=== PATIENT | female | born 1965 | race Caucasian/White ===

== ENCOUNTER 2017-06-22 18:12 | Inpatient (IN) | payer OTHER ==
[~2017-06-22] VITALS: Ht 157.5 cm; Wt 58.3 kg
[2017-06-22 18:23] VITALS: BP 137/71; PULSE 110; RESP 16; TEMP 97.6; O2SAT 97
[2017-06-22] MEDS ORDERED: KLON2TAB PO (18:46)
[2017-06-22] MEDS ORDERED: ADDE20 PO (18:46)
[2017-06-22] MEDS ORDERED: VENL75TA PO (18:46)
[2017-06-22 19:20] VITALS: BP 127/75; PULSE 91; RESP 14; O2SAT 98
[2017-06-22] MEDS ORDERED: ONDANSETRON HCL 4 MG/2 ML VIAL IVP ONE (20:00)
[2017-06-22] MEDS ORDERED: MORPHINE SULFATE 4 MG/ML INJ IV PUSH ONE (20:00)
[2017-06-22] MEDS ORDERED: DEXAMETHASONE SOD PHOS 4 MG/ML VIAL IV PUSH ONE (20:00)
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
[2017-06-22 20:23] LABS: AUTOMATED NEUTROPHIL # 6.3 TH/MM3 (1.8-7.7); BASOPHIL # 0.4 TH/MM3 (0-0.2); BASOPHIL % 3.6 % (0.0-2.0); EOSINOPHIL # 0.1 TH/MM3 (0-0.4); EOSINOPHIL % 0.5 % (0.0-4.0); LYMPH % 33.3 % (9.0-44.0); LYMPHOCYTE # 3.7 TH/MM3 (1.0-4.8); MEAN CELL VOLUME 95.4 FL (80.0-100.0); MEAN CORPUSCULAR HEMOGLOBIN 31.8 PG (27.0-34.0); MEAN CORPUSCULAR HGB CONC 33.3 % (32.0-36.0); MONO % 5.8 % (0.0-8.0); NEUT % 56.8 % (16.0-70.0); PLATELET COUNT 331 TH/MM3 (150-450); RED BLOOD COUNT 4.08 MIL/MM3 (4.00-5.30); RED CELL DISTRIBUTION WIDTH 13.1 % (11.6-17.2); WHITE BLOOD COUNT 11.1 TH/MM3 (4.0-11.0)
[2017-06-22 20:26] LABS: HEMO FLAGS DIFF FINAL
[2017-06-22 20:35] LABS: CHLORIDE 106 MEQ/L (98-107); POTASSIUM 3.8 MEQ/L (3.5-5.1); SODIUM (NA) 138 MEQ/L (136-145)
[2017-06-22 20:40] LABS: APTT (PATIENT) 27.5 SEC (24.3-30.1); PROTHROMBIN TIME - PATIENT 10.7 SEC (9.8-11.6)
[2017-06-22 20:41] LABS: ANION GAP 8 MEQ/L (5-15); BICARBONATE 23.8 MEQ/L (21.0-32.0); BLOOD UREA NITROGEN 9 MG/DL (7-18)
[2017-06-22 20:44] LABS: ALT (GPT) 33 U/L (10-53); AST (GOT) 23 U/L (15-37); GLOMERULAR FILTRATION RATE 107 ML/MIN (>89)
[2017-06-22 20:46] LABS: TOTAL BILIRUBIN ADULT 0.6 MG/DL (0.2-1.0)
[2017-06-22 20:47] LABS: ALKALINE PHOSPHATASE 103 U/L (45-117)
[2017-06-22] MEDS ORDERED: GADODIAMIDE PF 287 MG/ML 10 ML VIAL (for RAD MRI) IV ONE (22:23)
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
[2017-06-22] MEDS ORDERED: NALOXONE HCL 0.4 MG/ML AMP IV PRN (23:00)
[2017-06-22] MEDS ORDERED: SODIUM CHLORIDE 0.9% FLUSH 10 ML FLUSH IV FLUSH PRN (23:00)
[2017-06-23] MEDS: DEXAMETHASONE SOD PHOS 4 MG/ML VIAL IV PUSH SCH ×5 (00:19→23:03)
[2017-06-23] MEDS: MORPHINE SULFATE 4 MG/ML INJ IV PUSH PRN ×7 (00:20→23:04)
--- NOTE | 2017-06-23 01:08 | RADRPT ---
EXAM DATE/TIME: 06/23/2017 00:42 [facility] COMPARISON: MRI CERVICAL SPINE W & W/O CONTRAST, June 22, 2017, 21:29. INDICATIONS : Radiculopathy. Cord compression and severe lower back pain. MEDICAL HISTORY : None. SURGICAL HISTORY : section. Tonsillectomy. Hemorrhoidectomy. Hysterectomy. ENCOUNTER: Subsequent ACUITY: 1 month PAIN SCORE: 8/10 LOCATION: Lower back. TECHNIQUE: Multiplanar multisequence MRI of the lumbar spine was performed without contrast. FINDINGS: The most caudal appearing lumbar vertebra is numbered as L5. There is mild disc desiccation. VERTEBRAE: Homogeneous signal. Normal alignment. CONUS: Normal level and configuration. T12-L1: The thecal sac has a normal diameter. No evidence of disc bulge or protrusion. The neural foramina are patent bilaterally. L1-L2: The thecal sac has a normal diameter. No evidence of disc bulge or protrusion. The neural foramina are patent bilaterally. L2-L3: The thecal sac has a normal diameter. No evidence of disc bulge or protrusion. The neural foramina are patent bilaterally. L3-L4: Mild facet and ligamentum flavum hypertrophy with trace facet joint fluid. L4-L5: Minimal diffuse disc bulge with moderate facet and ligamentum flavum hypertrophy and facet joint flui d. L5-S1: Mild facet and ligamentum flavum hypertrophy. CONCLUSION: 1. Mild degenerative changes are noted without evidence of spinal stenosis or foraminal stenosis. Linus Ragsdale MD on June 23, 2017 at 1:05 Board Certified Radiologist. This report was verified electronically.
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
[2017-06-23 07:19] LABS: AUTOMATED NEUTROPHIL # 6.9 TH/MM3 (1.8-7.7); BASOPHIL % 0.3 % (0.0-2.0); HEMATOCRIT 36.7 % (35.0-46.0); HEMO FLAGS DIFF FINAL; LYMPH % 16.8 % (9.0-44.0); LYMPHOCYTE # 1.4 TH/MM3 (1.0-4.8); MEAN CELL VOLUME 96.1 FL (80.0-100.0); MEAN CORPUSCULAR HEMOGLOBIN 33.2 PG (27.0-34.0); MEAN CORPUSCULAR HGB CONC 34.5 % (32.0-36.0); NEUT % 81.9 % (16.0-70.0); PLATELET COUNT 292 TH/MM3 (150-450); RED BLOOD COUNT 3.82 MIL/MM3 (4.00-5.30); RED CELL DISTRIBUTION WIDTH 13.4 % (11.6-17.2); WHITE BLOOD COUNT 8.4 TH/MM3 (4.0-11.0)
[2017-06-23 07:26] LABS: BICARBONATE 25.4 MEQ/L (21.0-32.0); POTASSIUM 4.4 MEQ/L (3.5-5.1)
[2017-06-23 08:00] VITALS: BP 104/53; PULSE 79; RESP 17; TEMP 96.6; O2SAT 99
--- NOTE | 2017-06-23 08:24 | EKG ---
Date Performed: 06/22/2017 Time Performed: 20:04:57 PTAGE: 52 years EKG: Sinus rhythm NORMAL ECG NO PREVIOUS TRACING DOCTOR: Benedicto Collins Interpretating Date/Time 06/23/2017 08:23:17
[2017-06-23] MEDS: SODIUM CHLORIDE 0.9% FLUSH 10 ML FLUSH IV FLUSH SCH ×2 (08:26→19:30)
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
[2017-06-23] MEDS ORDERED: PANTOPRAZOLE SODIUM 40 MG VIAL IV PUSH SCH (09:00)
[2017-06-23 12:00] VITALS: BP 113/58; PULSE 71; RESP 16; TEMP 96.5; O2SAT 95
--- NOTE | 2017-06-23 12:32 | RADRPT ---
EXAM DATE/TIME: 06/23/2017 10:58 [facility] COMPARISON: No previous studies available for comparison. INDICATIONS : Pain. Incontinence. CONTRAST: 10 cc Omniscan (gadodiamide) IV MEDICAL HISTORY : None. SURGICAL HISTORY : Tonsillectomy. Hysterectomy. section. ENCOUNTER: Initial ACUITY: 2 day PAIN SCORE: 4/10 LOCATION: back TECHNIQUE: Multiplanar multisequence MRI of the thoracic spine was performed. FINDINGS: There are areas of signal heterogeneity in the visualized posterior segment of right lobe of liver. VERTEBRA: Normal vertebral body height. Homogeneous marrow signal. ALIGNMENT: Normal. CORD: Normal position and configuration. POST CONTRAST: No abnormal areas of contrast enhancement seen. T1-T2: Normal. T2-T3: The thecal sac has a normal diameter. No evidence of disc bulge or protrusion. T3-T4: The thecal sac has a normal diameter. No evidence of disc bulge or protrusion. T4-T5: The thecal sac has a normal diameter. No evidence of disc bulge or protrusion. T5-T6: The thecal sac has a normal diameter. No evidence of disc bulge or protrusion. T6-T7: The thecal sac has a normal diameter. No evidence of disc bulge or protrusion. T7-T8: The thecal sac has a normal diameter. No evidence of disc bulge or protrusion. T8-T9: The thecal sac has a normal diameter. No evidence of disc bulge or protrusion. T9-T10: The thecal sac has a normal diameter. No evidence of disc bulge or protrusion. T10-T11: The thecal sac has a normal diameter. No evidence of disc bulge or protrusion. T11-T12: The thecal sac has a normal diameter. No evidence of disc bulge or protrusion. T12-L1: The thecal sac has a normal diameter. No evidence of disc bulge or protrusion. CONCLUSION: Unremarkable MR appearance of the thoracic spine. MR signal abnormalities in the posterior segment of the right lobe of the liver. Recommend further ev aluation with contrasted liver protocol MRI Joe Smith MD on June 23, 2017 at 12:27 Board Certified Radiologist. This report was verified electronically.
[2017-06-23] MEDS ORDERED: GADODIAMIDE PF 287 MG/ML 10 ML VIAL (for RAD MRI) IV ONE (13:00)
[2017-06-23 16:00] VITALS: BP 128/57; PULSE 71; RESP 17; TEMP 96.4; O2SAT 97
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
[2017-06-23 19:48] VITALS: PULSE 80
[2017-06-23 20:01] VITALS: BP 103/53; PULSE 76; RESP 18; TEMP 96.5; O2SAT 96
[2017-06-24 00:04] VITALS: BP 126/59; PULSE 80; RESP 18; TEMP 97.3; O2SAT 96
[2017-06-24] MEDS: clonazePAM 1 MG TAB PO SCH ×2 (00:08→19:50)
[2017-06-24] MEDS: MORPHINE SULFATE 4 MG/ML INJ IV PUSH PRN (04:03)
[2017-06-24 04:13] VITALS: BP 99/55; PULSE 80; RESP 18; TEMP 96.7; O2SAT 96
[2017-06-24] MEDS: DEXAMETHASONE SOD PHOS 4 MG/ML VIAL IV PUSH SCH ×3 (05:56→19:50)
[2017-06-24 08:00] VITALS: BP 103/58; PULSE 88; RESP 16; TEMP 96.9; O2SAT 97
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
[2017-06-24] MEDS: VENLAFAXINE HCL XR 75 MG CAP PO SCH (09:55)
[2017-06-24] MEDS: PANTOPRAZOLE SOD 40 MG DELAYED RELEASE TAB PO SCH (09:55)
[2017-06-24] MEDS: DEXTROAMPHETAMINE/AMPHETAMINE 20 MG TAB PO SCH (09:55)
[2017-06-24] MEDS: SODIUM CHLORIDE 0.9% FLUSH 10 ML FLUSH IV FLUSH SCH ×2 (09:56→19:53)
[2017-06-24] MEDS: oxyCODONE/ACETAMINOPHEN 5 MG/325 MG TAB PO PRN ×4 (10:05→21:46)
[2017-06-24 12:00] VITALS: BP 112/63; PULSE 90; RESP 17; TEMP 96.9; O2SAT 96
[2017-06-24] MEDS ORDERED: MORPHINE SULFATE 4 MG/ML INJ IV PUSH PRN (12:00)
[2017-06-24 16:00] VITALS: BP 124/60; PULSE 76; RESP 17; TEMP 96.5; O2SAT 96
[2017-06-24 16:40] LABS: AMPHETAMINE, URINE POS (NEG); BARBITURATES, URINE NEG (NEG); COCAINE, URINE NEG (NEG)
[2017-06-24] MEDS: CALCIUM CARBONATE 500 MG CHEWABLE TAB CHEW SCH (19:50)
[2017-06-24 20:00] VITALS: BP 114/57; PULSE 74; RESP 18; TEMP 98.5; O2SAT 97
[2017-06-25] VITALS: BP 120/56; PULSE 81; RESP 18; TEMP 97.9; O2SAT 96
[2017-06-25] MEDS: oxyCODONE/ACETAMINOPHEN 5 MG/325 MG TAB PO PRN ×3 (01:44→10:07)
[2017-06-25 04:00] VITALS: BP 103/56; PULSE 68; RESP 18; TEMP 96.8; O2SAT 97
[2017-06-25] MEDS: DEXAMETHASONE SOD PHOS 4 MG/ML VIAL IV PUSH SCH (05:53)
[2017-06-25] MEDS ORDERED: CYANOCOBALAMIN 1000 MCG/ML VIAL IM ONE (07:30)
[2017-06-25] MEDS ORDERED: MORPHINE SULFATE 4 MG/ML INJ IV PUSH PRN (07:45)
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
[2017-06-25 08:00] VITALS: BP 104/57; PULSE 66; RESP 18; TEMP 96.5; O2SAT 98
[2017-06-25] MEDS ORDERED: OXYC1TAB63 PO (08:03)
[2017-06-25] MEDS ORDERED: NEUR300C PO (08:03)
[2017-06-25] MEDS ORDERED: DOCU1CAP39 PO (08:06)
[2017-06-25] MEDS ORDERED: WALKER WHEELS/F1 MIS (08:19)
[2017-06-25] MEDS: CALCIUM CARBONATE 500 MG CHEWABLE TAB CHEW SCH (08:56)
[2017-06-25] MEDS: VENLAFAXINE HCL XR 75 MG CAP PO SCH (08:56)
[2017-06-25] MEDS: DEXTROAMPHETAMINE/AMPHETAMINE 20 MG TAB PO SCH (08:56)
[2017-06-25] MEDS: PANTOPRAZOLE SOD 40 MG DELAYED RELEASE TAB PO SCH (08:57)
[2017-06-25] MEDS: SODIUM CHLORIDE 0.9% FLUSH 10 ML FLUSH IV FLUSH SCH (08:57)
[2017-06-25] MEDS ORDERED: GABAPENTIN 300 MG CAP PO SCH ×2 (09:00)
[2017-06-25] MEDS ORDERED: DOCUSATE SODIUM 100 MG CAP PO SCH (09:00)
== END 2017-06-25 12:01 | disposition home or self-care (01) | DRG 552 ==
LOC: PHEFT 18:12 → PHEDA 23:18 → N07B 06-23 02:10
PROVIDERS: ADMIT Internal Medicine; ATTEND Internal Medicine
DX: M50.223 Other cervical disc displacement at C6-C7 level (principal); G62.9 Polyneuropathy, unspecified; F32.9 Major depressive disorder, single episode, unspecified; R20.2 Paresthesia of skin; F41.9 Anxiety disorder, unspecified; K59.00 Constipation, unspecified; Z87.891 Personal history of nicotine dependence; V43.52XA Car driver injured in collision with other type car in traffic accident, initial encounter; M54.5 Low back pain
CPT/HCPCS: 72148; 72156; 72157; 80048; 80053; 80307; 82607; 82746; 84443; 85025; 85610; 85730; 93005; 96374; 96375; A9579; C9113; J1100; J2270; J2405; J3420